=== PATIENT | female | born 1975 | race Caucasian/White ===

== ENCOUNTER 2018-03-30 11:20 | Observation (INO) | payer OTHER ==
[~2018-03-30] VITALS: Ht 169 cm; Wt 90.0 kg
[2018-03-30 11:58] VITALS: BP 116/59
[2018-03-30] MEDS ORDERED: PROG200C7 PO (12:02)
[2018-03-30] MEDS ORDERED: PNV1TABL54 PO (12:02)
[2018-03-30] MEDS ORDERED: ASPI81 PO (12:02)
== END 2018-03-30 13:10 | disposition home or self-care (01) ==
LOC: 4S 11:20
PROVIDERS: ADMIT Obstetrics & Gynecology; ATTEND Obstetrics & Gynecology
DX: O34.13 Maternal care for benign tumor of corpus uteri, third trimester (principal); O09.523 Supervision of elderly multigravida, third trimester; Z3A.36 36 weeks gestation of pregnancy
CPT/HCPCS: 59025; G0378

== ENCOUNTER 2018-04-01 07:44 | Inpatient (IN) | payer OTHER ==
[~2018-04-01] VITALS: Ht 170.2 cm; Wt 89.8 kg
[~2018-04-01 07:44] MED LIST: ASPI81 PO; PNV1TABL54 PO; PROG200C7 PO
[2018-04-01] MEDS ORDERED: METOCLOPRAMIDE HCL 5 MG/ML 2 ML VIAL IVP ONE (08:00)
[2018-04-01] MEDS ORDERED: CITRIC ACID/SODIUM CITRATE 30 ML SOLUTION UDCUP PO ONE (08:00)
[2018-04-01 08:14] VITALS: BP 116/59
[2018-04-01 08:28] LABS: BASOPHILS % (AUTO) 0.2 % (0.0-2.0); HEMATOCRIT 38.2 % (36-46); HEMOGLOBIN 12.9 g/dL (12.0-16.0); LYMPHOCYTES # (AUTO) 1.4 K/uL (1.0-4.8); LYMPHOCYTES % (AUTO) 12.2 % (22.0-44.0); MEAN CORPUSCULAR HEMOGLOBIN 31.6 pg (26.0-34.0); MEAN CORPUSCULAR HGB CONC 33.6 G/dL (31.0-37.0); MEAN CORPUSCULAR VOLUME 94 fL (80-100); MONOCYTES # (AUTO) 0.8 K/uL (0.1-1.0); MONOCYTES % (AUTO) 6.9 % (2.0-9.0); NEUTROPHILS # (AUTO) 8.5 K/uL (1.8-7.7); NEUTROPHILS % (AUTO) 75.7 % (40.0-70.0); PLATELET COUNT (AUTO) 256 K/uL (150-450); RED BLOOD CELL COUNT(AUTO) 4.07 MIL/uL (4.00-5.20); RED CELL DISTRIBUTION WIDTH 15.2 % (11.5-14.5)
[2018-04-01] MEDS: RINGERS SOLUTION,LACTATED 1,000 ML IV SCH ×3 (08:47→13:00)
[2018-04-01] MEDS ORDERED: ACETAMINOPHEN 1000 MG/ISO-OSM 100 ML IV ONE ×2 (11:05→12:00)
[2018-04-01] MEDS ORDERED: HYDROmorphone 2 MG/ML SYRINGE IVP PRN (12:00)
[2018-04-01] MEDS ORDERED: NALOXONE HCL 0.4 MG/ML VIAL IVP PRN (12:00)
[2018-04-01] MEDS ORDERED: ONDANSETRON HCL 4 MG/2 ML VIAL IVP PRN (12:00)
[2018-04-01] MEDS ORDERED: EPHEDrine SULFATE 50 MG/ML VIAL IM ONE (12:00)
[2018-04-01] MEDS ORDERED: DiphenhydrAMINE HCL 50 MG/ML VIAL IVP PRN (12:00)
[2018-04-01] MEDS ORDERED: FentaNYL CITRATE-PF 100 MCG/2 ML VIAL IVP ONE (12:00)
[2018-04-01] MEDS ORDERED: FentaNYL CITRATE-PF 100 MCG/2 ML VIAL IVP PRN ×2 (12:00)
[2018-04-01] MEDS ORDERED: MORPHINE SULFATE/PF 0.5 MG/ML 10 ML AMP IVP ONE (12:00)
[2018-04-01] MEDS ORDERED: KETOROLAC TROMETHAMINE 60 MG/2 ML VIAL IM ONE (12:00)
[2018-04-01] MEDS ORDERED: KETOROLAC TROMETHAMINE 30 MG/ML VIAL IVP SCH (12:00)
[2018-04-01] MEDS ORDERED: ONDANSETRON HCL 4 MG/2 ML VIAL IVP ONE (12:00)
[2018-04-01] MEDS ORDERED: OXYTOCIN 10 UNITS/ML 10 ML VIAL IV ONE (12:00)
[2018-04-01] MEDS ORDERED: MEPERIDINE HCL/PF 25 MG/0.5 ML AMP IVP PRN (12:00)
[2018-04-01] MEDS ORDERED: LANOLIN 7 GM OINTMENT TP PRN (12:30)
[2018-04-01] MEDS ORDERED: ACETAMINOPHEN/CODEINE 300-30 MG TABLET PO PRN ×2 (12:30)
[2018-04-01] MEDS: DEXTROSE 5%-0.45% SODIUM CHL 1,000 ML IV SCH ×3 (14:07→21:21)
[2018-04-01] MEDS: KETOROLAC TROMETHAMINE 30 MG/ML VIAL IVP SCH (18:26)
[2018-04-01] MEDS: ACETAMINOPHEN 1000 MG/ISO-OSM 100 ML IV SCH (21:20)
[2018-04-01] MEDS: MAGNESIUM HYDROXIDE SUSPENSION 30 ML UDCUP PO SCH (21:22)
[2018-04-02] MEDS: KETOROLAC TROMETHAMINE 30 MG/ML VIAL IVP SCH
[2018-04-02] MEDS: DEXTROSE 5%-0.45% SODIUM CHL 1,000 ML IV SCH (01:46)
[2018-04-02] MEDS: ACETAMINOPHEN 1000 MG/ISO-OSM 100 ML IV SCH ×2 (03:01→08:57)
[2018-04-02] MEDS ORDERED: IBUPROFEN 800 MG TABLET PO SCH (06:00)
[2018-04-02] MEDS: MAGNESIUM HYDROXIDE SUSPENSION 30 ML UDCUP PO SCH ×2 (08:56→21:00)
[2018-04-02] MEDS: IBUPROFEN 800 MG TABLET PO SCH ×2 (11:45→17:57)
[2018-04-03] MEDS: IBUPROFEN 800 MG TABLET PO SCH ×4 (00:12→18:26)
[2018-04-03] MEDS ORDERED: DiphenhydrAMINE HCL 25 MG CAPSULE PO PRN (08:30)
[2018-04-03] MEDS ORDERED: HYDROCORTISONE 1% 30 GM CREAM TP SCH (09:00)
[2018-04-03] MEDS: MAGNESIUM HYDROXIDE SUSPENSION 30 ML UDCUP PO SCH ×2 (09:01→23:57)
[2018-04-04] MEDS: IBUPROFEN 800 MG TABLET PO SCH ×2 (05:58)
[2018-04-04] MEDS: MAGNESIUM HYDROXIDE SUSPENSION 30 ML UDCUP PO SCH (08:27)
[2018-04-04] MEDS ORDERED: IBUP-2071 PO (09:37)
[2018-04-04] MEDS ORDERED: DSS100 PO (09:38)
[2018-04-04] MEDS ORDERED: ACET1TAB12 PO (09:40)
[2018-04-04] MEDS ORDERED: SENNA/DOCUSATE SODIUM 187-50 MG TABLET PO ONE ×3 (10:45→11:00)
[2018-04-04] MEDS ORDERED: SENNA/DOCUSATE SODIUM 187-50 MG TABLET ONE (10:48)
== END 2018-04-04 12:20 | disposition home or self-care (01) | DRG 766 ==
LOC: OBSVTOIN 07:44 → 4S 07:44
PROVIDERS: ADMIT Obstetrics & Gynecology; ATTEND Obstetrics & Gynecology
PROC: 10D00Z1 Extraction of Products of Conception, Low, Open Approach (ICD-10-PCS; principal; 2018-04-01)
DX: O34.13 Maternal care for benign tumor of corpus uteri, third trimester (principal); D25.9 Leiomyoma of uterus, unspecified; Z37.0 Single live birth; Z3A.39 39 weeks gestation of pregnancy
CPT/HCPCS: 86850; 86900; 86901; 87081; J0131; J0690; J1885; J2274; J2405; J2590; J2765; J3010; J3490; J7120